=== PATIENT | female | born 1955 | race Caucasian/White ===

== ENCOUNTER 2017-08-09 06:46 | Day surgery (SDC) | payer OTHER ==
[~2017-08-09] VITALS: Ht 153.7 cm; Wt 65.9 kg
[~2017-08-09 06:46] MED LIST: ACET325 PO; ALEV220T14 PO; PERC5TAB12 PO
[2017-08-09 07:04] VITALS: BP 148/81; PULSE 75; RESP 20; TEMP 98.2; O2SAT 97
[2017-08-09] MEDS ORDERED: SODIUM CHLOR 0.9% 1000 ML INJ 1,000 ML IV SCH (07:15)
[2017-08-09] MEDS ORDERED: ROSU10 PO (07:24)
[2017-08-09 08:13] LABS: BICARBONATE 23.5 MEQ/L (21.0-32.0); POTASSIUM 4.3 MEQ/L (3.5-5.1)
[2017-08-09 08:15] LABS: KAPPA LAMBDA RATIO 1.71 (1.57-3.93)
[2017-08-09 09:40] VITALS: BP 148/74; PULSE 68; RESP 16; TEMP 97.9; O2SAT 93
--- NOTE | 2017-08-09 10:04 | RADRPT ---
EXAM DATE/TIME: 08/09/2017 09:15 [place] COMPARISON: No previous studies available for comparison. INDICATIONS : Patient presents with bilateral lower extremity weakness in need of lumbar puncture. MEDICAL HISTORY : Ischemic stroke SURGICAL HISTORY : C section x3 ENCOUNTER: Initial ACUITY: 2 months PAIN SCORE: 0/10 LOCATION: N/A LUMBAR PUNCTURE TIME: 0926 hours FLUORO TIME: 0.8 minutes ACCESS LEVEL: L4-5 OPENING PRESSURE: 18 cm of water CLOSING PRESSURE: Not requested. FLUID: 11 cc of clear CSF was collected and sent to the laboratory for analysis. PROCEDURE : 1. Fluoroscopic guided lumbar puncture. 2. Recording of opening pressure. The risks, benefits and alternatives to the procedure were explained and verbal and written consent w as obtained. The site was prepped in sterile fashion. Full sterile technique was used, including ca p, mask, sterile gloves and gown and a large sterile sheet. Hand hygiene and 2% chlorhexidine and/or betadine/alcohol prep was utilized per protocol for cutaneous antisepsis. The skin and subcutaneous tissues were infiltrated with local anesthetic solution. With fluoroscopic guidance the lumbar thecal sac was punctured at the above level described above and the opening pressure was recorded. The above described fluid was removed without difficulty. The patient tolerated the procedure well and there were no complications. CONCLUSION: Uncomplicated fluoroscopically guided lumbar puncture with pressures as above. Raúl Aguila Jr., MD on August 09, 2017 at 10:02 Board Certified Radiologist. This report was verified electronically.
--- NOTE | 2017-08-09 10:32 | PD.RAD ---
Post Procedure Progress Note Pre Procedure Diagnosis: (1) Weakness of both legs Post Procedure Diagnosis: (1) Weakness of both legs Procedure Date: Aug 09, 2017 Supervising Radiologist: Raúl Aguila JR Proceduralist/Assist: RT Samuel(R), RT Nabeel(R) Anesthesia: Local Plan of Activity Patient to Unit: ROPU Patient Condition: Good See PACS Report for procedural detail/treatment Spinal Procedure Lumbar Puncture L4-L5 Fluid Removal (CCs): 11 Fluid Description: Clear Puncture Time: 09:26 Findings: Opening pressure: 18 cm H2O Jr. Mingo,Raúl Rizvi MD Aug 09, 2017 10:32
[2017-08-09 11:00] VITALS: BP 130/70; PULSE 68; RESP 16; O2SAT 93
[2017-08-09 11:10] LABS: CSF LYMPHOCYTES 27 %; CSF MONOCYTES 13 %; CSF NEUTROPHILS 60 %
[2017-08-09 11:12] LABS: GROSS BLOOD TUBE #1 4+ (0); GROSS BLOOD TUBE #2 TRACE (0); GROSS BLOOD TUBE #3 TRACE (0); GROSS BLOOD TUBE #4 4+ (0); SUPERNATE COLOR TUBE #1 CLEAR (CLEAR); SUPERNATE COLOR TUBE #2 CLEAR (CLEAR); SUPERNATE COLOR TUBE #3 CLEAR (CLEAR); SUPERNATE COLOR TUBE #4 CLEAR (CLEAR); VOLUME TUBE # 1 2.3 ML; VOLUME TUBE # 2 2.6 ML; WBC TUBE #4 60 /MM3 (0-10)
[2017-08-11 09:49] LABS: LYME IGG IMMUNOBLOT CSF None Detected bands (None Detected); LYME IGM IMMUNOBLOT CSF None Detected bands (None Detected); OLIGOCLONAL BANDING CSF 4 bands; OLIGOCLONAL BANDING INTERPRET 0 bands (<4); OLIGOCLONAL BANDING SERUM 4 bands
[2017-08-11 11:50] LABS: THROMBIN TIME FOR LA ND sec (13-19)
[2017-08-11 17:53] LABS: B. BURGDORFERI DNA PCR CSF NOT DETECTED (NOT DETECTE)
[2017-08-12 10:06] LABS: CSF CRYPTOCOCCUS AG CONF ND (NOT DETECTD)
== END 2017-08-09 11:30 | disposition home or self-care (01) ==
LOC: HROP 06:46 → HRIP 06:47 → HROP 11:30
PROVIDERS: ATTEND Psychiatry & Neurology Neurology
DX: G35 Multiple sclerosis (principal); F41.1 Generalized anxiety disorder; Z86.73 Personal history of transient ischemic attack (TIA), and cerebral infarction without residual deficits
CPT/HCPCS: 62270; 77003; 80048; 82550; 82784; 82945; 83873; 83883; 83916; 84157; 85306; 85613; 85730; 86334; 86403; 86618; 87015; 87070; 87102; 87116; 87205; 87206; 87801; 89051; J7030